=== PATIENT | male | born 1950 ===

== ENCOUNTER → 2022-10-04 | Outpatient (CLI) | payer OTHER | END | disposition home or self-care (01) | LOC: RAD 10:32 | PROVIDERS: ATTEND Orthopaedic Surgery | DX: M48.061 Spinal stenosis, lumbar region without neurogenic claudication (principal) ==

== ENCOUNTER 2022-10-06 14:57 | Outpatient (CLI) | payer OTHER | END 2022-10-06 15:10 | disposition home or self-care (01) | LOC: MRI 14:57 | PROVIDERS: ATTEND Orthopaedic Surgery | DX: M48.26 Kissing spine, lumbar region (principal) | CPT/HCPCS: 72148 ==